=== PATIENT | male | born 1970 | race Asian ===

== ENCOUNTER 2022-09-10 14:34 | Inpatient (IN) | payer BC ==
[2022-09-10 15:03] LABS: #Basophils 0.1 thou/uL (0.0-0.2); #Eosinphils 0.1 thou/uL (0.0-0.7); #Lymphocytes 1.6 thou/uL (1.20-3.40); #Monocytes 0.6 thou/uL (0.11-0.59); #Neutrophils 2.5 thou/uL (1.40-6.50); %Eosinophils 2.6 % (0.0-10.0); %Lymphocytes 32.3 % (21.0-51.0); %Monocytes 11.7 % (0.0-10.0); %Neutrophils 51.5 % (42.0-75.0); Hemoglobin 16.3 g/dL (14.0-18.0); Mean Corpuscular HGB CONC 33.4 g/dL (32.0-36.0); Mean Corpuscular Hemoglobin 32.2 pg (27.0-31.0); Mean Corpuscular Volume 96.4 fl (78.0-98.0); Mean Platelet Volume 8.2 fL (7.4-10.4); Platelet Count 209 10x3/uL (130-400); RBC Distribution Width 12.1 % (11.5-14.5); Red Blood Cell (RBC) Count 5.08 mill/uL (4.70-6.10); White Blood Cell (WBC) Count 4.9 10x3/uL (4.8-10.8)
[2022-09-10] MEDS ORDERED: Iopamidol-370 76% 500 ML 1 ML ONE (15:11)
[2022-09-10 15:17] LABS: ALT (SGPT) Less than 7 U/L (8-55); AST (SGOT) 8 U/L (5-34); Albumin 3.6 g/dL (3.5-5.0); Alkaline Phosphatase 59 U/L (40-110); Anion Gap 12 mmol/L (10-20); BUN (Urea Nitrogen) 7 mg/dL (8.4-25.7); CK (CPK) 38 U/L (30-200); Calc. Creatinine Clearance 0 mL/min (70-130); Calcium 8.7 mg/dL (7.8-10.44); Carbon Dioxide 22 mmol/L (22-29); Chloride 106 mmol/L (98-107); Estimated GFR 109; Globulin 2.1 g/dL (2.4-3.5); Glucose 83 mg/dL (70-105); Potassium 4.2 mmol/L (3.5-5.1); Protein, Total 5.7 g/dL (6.0-8.3); Prothrombin Time 15.6 sec (12.0-14.7); Sodium 136 mmol/L (136-145)
[2022-09-10 15:28] LABS: INR-International Normal Ratio 1.2
[2022-09-10] MEDS ORDERED: diphenhydrAMINE 50 MG/ML VIAL ONE (16:42)
[2022-09-10] MEDS ORDERED: methylPREDNISolone Sod Succ/PF 125 MG/2 ML VIAL ONE (16:42)
[2022-09-10] MEDS ORDERED: Famotidine/PF 20 mg/2ml Vial ONE (16:42)
[2022-09-10] MEDS ORDERED: Aspirin Chewable 81 MG TAB ONE (16:52)
[2022-09-10] MEDS ORDERED: Acetaminophen 325 MG TAB PO PRN (18:04)
[2022-09-10] MEDS ORDERED: Ondansetron ODT 4 MG TAB PO PRN (18:04)
[2022-09-10] MEDS ORDERED: HYDROcodone/Acetaminophen 5/325 mg Tablet PO PRN (18:04)
[2022-09-10] MEDS ORDERED: hydrALAZINE 20 MG/ML VIAL SLOW IVP PRN (18:33)
[2022-09-10 18:44] LABS: Troponin I Less than 0.010 ng/mL (< 0.028)
[2022-09-10 21:34] LABS: Troponin I Less than 0.010 ng/mL (< 0.028)
[2022-09-10] MEDS: Atorvastatin Calcium 10 MG TAB PO SCH (22:17)
[2022-09-10] MEDS: Lorazepam 0.5 MG TAB PO SCH (22:17)
[2022-09-11 05:50] LABS: #Lymphocytes 0.8 thou/uL (1.20-3.40); #Monocytes 0.2 thou/uL (0.11-0.59); #Neutrophils 5.9 thou/uL (1.40-6.50); %Basophils 0.4 % (0.0-1.0); %Lymphocytes 11.6 % (21.0-51.0); %Monocytes 3.2 % (0.0-10.0); %Neutrophils 84.8 % (42.0-75.0); Hemoglobin 16.8 g/dL (14.0-18.0); Mean Corpuscular HGB CONC 34.1 g/dL (32.0-36.0); Mean Corpuscular Volume 93.7 fl (78.0-98.0); Mean Platelet Volume 8.3 fL (7.4-10.4); Platelet Count 242 10x3/uL (130-400); Red Blood Cell (RBC) Count 5.26 mill/uL (4.70-6.10)
[2022-09-11 05:51] VITALS: BMI 28.7
[2022-09-11 06:06] LABS: Anion Gap 12 mmol/L (10-20); BUN (Urea Nitrogen) 13 mg/dL (8.4-25.7); Calc. Creatinine Clearance 142 mL/min (70-130); Carbon Dioxide 21 mmol/L (22-29); Cardiac Risk 2.9 (Less than 4.5); Chloride 106 mmol/L (98-107); Cholesterol 172 mg/dl (< 200 Desired); Estimated GFR 108; Glucose 130 mg/dL (70-105); HDL Cholesterol 59 mg/dL (>60 Neg Risk); LDL Cholesterol, Calculated 104 mg/dL; Sodium 135 mmol/L (136-145); Triglycerides 44 mg/dL (Less than 150)
[2022-09-11 06:09] LABS: Hemoglobin A1c 4.4 % (4.0-6.0)
[2022-09-11] MEDS: Aspirin 325 mg Enteric Coated Tablet PO SCH (09:07)
[2022-09-11] MEDS: Lorazepam 0.5 MG TAB PO SCH ×2 (09:07→20:23)
[2022-09-11] MEDS ORDERED: Lorazepam 2 MG/ML VIAL SLOW IVP SCH (10:45)
[2022-09-11] MEDS: Atorvastatin Calcium 10 MG TAB PO SCH (20:23)
[2022-09-12 05:40] LABS: #Basophils 0.1 thou/uL (0.0-0.2); #Eosinphils 0.1 thou/uL (0.0-0.7); #Lymphocytes 2.3 thou/uL (1.20-3.40); #Monocytes 0.6 thou/uL (0.11-0.59); #Neutrophils 3.7 thou/uL (1.40-6.50); %Basophils 1.3 % (0.0-1.0); %Eosinophils 0.8 % (0.0-10.0); %Lymphocytes 34.3 % (21.0-51.0); %Monocytes 8.7 % (0.0-10.0); Hemoglobin 16.1 g/dL (14.0-18.0); Mean Corpuscular HGB CONC 34.3 g/dL (32.0-36.0); Mean Corpuscular Volume 93.3 fl (78.0-98.0); Mean Platelet Volume 8.2 fL (7.4-10.4); Platelet Count 219 10x3/uL (130-400); RBC Distribution Width 11.9 % (11.5-14.5); Red Blood Cell (RBC) Count 5.03 mill/uL (4.70-6.10); White Blood Cell (WBC) Count 6.7 10x3/uL (4.8-10.8)
[2022-09-12 06:00] LABS: Anion Gap 13 mmol/L (10-20); BUN (Urea Nitrogen) 16 mg/dL (8.4-25.7); Calc. Creatinine Clearance 144 mL/min (70-130); Calcium 8.7 mg/dL (7.8-10.44); Carbon Dioxide 25 mmol/L (22-29); Chloride 105 mmol/L (98-107); Estimated GFR 108; Glucose 110 mg/dL (70-105); Potassium 3.8 mmol/L (3.5-5.1); Sodium 139 mmol/L (136-145)
[2022-09-12] MEDS: Aspirin 325 mg Enteric Coated Tablet PO SCH (08:26)
[2022-09-12] MEDS: Lorazepam 0.5 MG TAB PO SCH ×2 (08:26→20:15)
[2022-09-12] MEDS ORDERED: Senokot S 8.6-50 MG TAB PO PRN (09:21)
[2022-09-12] MEDS ORDERED: Polyethylene Glycol 3350 17 GM Packet PO SCH (09:30)
[2022-09-12] MEDS ORDERED: Spironolactone 25 MG TAB PO SCH (18:15)
[2022-09-12] MEDS: Atorvastatin Calcium 10 MG TAB PO SCH (20:15)
[2022-09-13 06:00] LABS: Anion Gap 11 mmol/L (10-20); BUN (Urea Nitrogen) 13 mg/dL (8.4-25.7); Calc. Creatinine Clearance 152 mL/min (70-130); Calcium 8.6 mg/dL (7.8-10.44); Carbon Dioxide 23 mmol/L (22-29); Chloride 105 mmol/L (98-107); Estimated GFR 110; Glucose 101 mg/dL (70-105); Potassium 3.9 mmol/L (3.5-5.1); Sodium 135 mmol/L (136-145)
[2022-09-13] MEDS ORDERED: Spironolactone 25 MG TAB PO SCH (08:00)
[2022-09-13] MEDS: Aspirin 325 mg Enteric Coated Tablet PO SCH (08:54)
[2022-09-13] MEDS: Lorazepam 0.5 MG TAB PO SCH ×2 (08:54→20:13)
[2022-09-13] MEDS ORDERED: Polyethylene Glycol 3350 17 GM Packet PO SCH (09:00)
[2022-09-13 16:05] VITALS: TEMP 97.8
[2022-09-13] MEDS: Atorvastatin Calcium 10 MG TAB PO SCH (20:13)
[2022-09-13 20:36] VITALS: BP 125/93
== END 2022-09-13 20:37 | disposition home or self-care (01) | DRG 880 ==
LOC: ERS 14:34 → ERHOLD 16:27 → NEURO 19:27
PROVIDERS: ADMIT Family Medicine; ATTEND Family Medicine
DX: F99 Mental disorder, not otherwise specified (principal); I50.32 Chronic diastolic (congestive) heart failure; F41.9 Anxiety disorder, unspecified; Z20.822 Contact with and (suspected) exposure to COVID-19; K59.00 Constipation, unspecified; I11.0 Hypertensive heart disease with heart failure; F17.210 Nicotine dependence, cigarettes, uncomplicated; Z82.3 Family history of stroke; Z86.73 Personal history of transient ischemic attack (TIA), and cerebral infarction without residual deficits; Z79.899 Other long term (current) drug therapy
CPT/HCPCS: 36415; 70450; 70496; 70498; 70551; 71045; 80048; 80053; 80061; 82550; 83036; 84443; 84484; 85025; 85610; 85730; 93306; 96374; 96375; J1200; J2060; J2930; Q9967; S0028; U0003; U0005